=== PATIENT | male | born 1990 | race Caucasian/White ===

== ENCOUNTER 2022-05-26 13:32 | Inpatient (IN) ==
[2022-05-26] MEDS ORDERED: Tdap (Boostrix) Vaccine 0.5 ML SYRINGE IM ONE (13:57)
[2022-05-26 14:08] LABS: Basophils % 0.3 %; Eosinophils % 0.2 %; Hematocrit 48.9 % (37.5-50.1); Hemoglobin 17.4 g/dL (12.9-16.9); Immature Granulocytes % 0.3 % (0-4); Lymphocytes # 0.8 K/mcL (0.6-4.6); Mean Corpuscular HGB Conc 35.6 g/dL (31.6-35.5); Mean Corpuscular Hemoglobin 30.1 pg (28.0-33.3); Mean Corpuscular Volume 84.6 fL (83.0-100.0); Mean Platelet Volume 9.5 fL (9.4-12.4); Monocytes # 0.6 K/mcL (0.0-1.3); Monocytes % 4.6 %; Neutrophils # 11.3 K/mcL (1.6-8.9); Platelet Count 386 K/mcL (140-400); Red Blood Count 5.78 M/mcL (4.19-5.50); Red Cell Distribution Width 11.8 % (11.5-14.5); Segmented Neutrophils % 88.6 %; White Blood Count 12.7 K/mcL (4.3-11.1)
[2022-05-26 14:28] LABS: Acetaminophen < 10 mcg/mL (10-20); Alanine Aminotransferase 26 Units/L (7-52); Albumin 4.8 g/dL (3.5-5.7); Albumin/Globulin Ratio 1.7 (1.1-2.2); Alkaline Phosphatase 62 Units/L (34-104); Aspartate Amino Transferase 20 Units/L (13-39); BUN/Creatinine Ratio 8 (6-26); Bilirubin,Direct 0.2 mg/dL (0.0-0.2); Bilirubin,Indirect 0.9 mg/dL (0.0-1.0); Bilirubin,Total 1.1 mg/dL (0.3-1.0); Blood Urea Nitrogen 9 mg/dL (6-20); Calcium 9.8 mg/dL (8.6-10.3); Carbon Dioxide 28 mEq/L (23-29); Chloride 101 mEq/L (98-107); Ethanol < 10 mg/dL (Less than 10); Globulin 2.8 g/dL (2.4-3.5); Glucose 182 mg/dL (70-105); Osmolality,Calculated 285 (280-300); Potassium 4.1 mEq/L (3.5-5.1); Salicylate < 2.5 mg/dL (15.0-30.0); Sodium 136 mEq/L (136-145); Total Protein 7.6 g/dL (6.4-8.9); eGFR For African Americans > 60 (> 60); eGFR For Non-African Americans > 60 (> 60)
[2022-05-26 14:47] LABS: Estimated Average Glucose 103 mg/dl; Hemoglobin A1C 5.2 %
[2022-05-26 15:03] LABS: Amorphous Sediment,Urine Moderate per hpf (None-Few); Bilirubin,Urine Negative (Negative); Blood,Urine Negative (Negative); Clarity,Urine Ex.Turbid (Clear); Color,Urine Yellow (Yellow); Glucose,Urine (UA) 50 mg/dL (Normal); Ketones,Urine Negative (Negative); Leukocyte Esterase,Urine Negative (Negative); Mucus,Urine Few per lpf (None-Few); Nitrite,Urine Negative (Negative); Protein,Urine 100 mg/dL (Neg-Trace); Specific Gravity,Urine 1.025 (1.010-1.025)
[2022-05-26 15:29] LABS: Amphetamine Screen,Urine Negative ng/mL (Cutoff=1000); Barbiturate Screen,Urine Negative ng/mL (Cutoff=200); Benzodiazepines Screen,Urine Negative ng/mL (Cutoff=200); Cannabinoid Screen,Urine Positive ng/mL (Cutoff = 50); Cocaine Screen,Urine Negative ng/mL (Cutoff= 300); Opiate Screen,Urine Negative ng/mL (Cutoff=300); Phencyclidine Screen,Urine Negative ng/mL (Cutoff=25)
[2022-05-27] MEDS ORDERED: Acetaminophen 325 MG TABLET PO ONE (05:51)
[2022-05-27] MEDS: Nicotine 2 MG GUM BC PRN ×4 (09:38→23:35)
[2022-05-27] MEDS ORDERED: Haloperidol Lactate 5 MG/ML VIAL IM PRN (11:04)
[2022-05-27] MEDS ORDERED: hydrOXYzine pamoate 25 MG CAPSULE PO PRN (11:04)
[2022-05-27] MEDS ORDERED: haloperidoL 5 MG TABLET PO PRN (11:04)
[2022-05-27] MEDS ORDERED: MOM Conc 10 ML UD.LIQ PO PRN (11:04)
[2022-05-27] MEDS ORDERED: QUEtiapine Fumarate 25 MG TABLET PO PRN (11:04)
[2022-05-27] MEDS ORDERED: *HR* LORazepam 1 MG TABLET PO PRN (11:04)
[2022-05-27] MEDS ORDERED: *HR* LORazepam 2 MG/ML VIAL IM PRN (11:04)
[2022-05-27] MEDS ORDERED: traZODone 50 MG TABLET PO PRN (11:04)
[2022-05-27] MEDS ORDERED: Mag Hydrox/Al Hydrox/Simeth 30 ML UDC PO PRN (11:04)
[2022-05-27 12:20] LABS: Influenza A PCR Negative (Negative); Influenza B PCR Negative (Negative); Resp. Syncytial Virus PCR Negative (Negative)
[2022-05-27 12:21] LABS: SARS-CoV-2 by PCR (In House) Negative (Negative)
[2022-05-27] MEDS: FLUoxetine HCl 10 MG CAPSULE PO SCH (15:31)
[2022-05-27] MEDS: Acetaminophen 325 MG TABLET PO PRN (18:12)
[2022-05-28] MEDS: Vitamin B Complex/Vit C/Vit E 1 EACH TABLET PO SCH (08:04)
[2022-05-28] MEDS: FLUoxetine HCl 10 MG CAPSULE PO SCH (08:04)
[2022-05-28] MEDS: Acetaminophen 325 MG TABLET PO PRN ×2 (08:05→20:33)
[2022-05-28] MEDS: Nicotine 2 MG GUM BC PRN ×5 (08:07→20:33)
[2022-05-28 12:45] LABS: Estimated Average Glucose 105 mg/dl; Hemoglobin A1C 5.3 %
[2022-05-28 13:07] LABS: Chol/HDL Ratio 2.8 (0-4.9); Cholesterol 140 mg/dL (< 200); HDL Cholesterol 50 mg/dL (40-59); LDL Cholesterol,Calculated 71 mg/dL (< 100); Testosterone,Total 120 ng/dL (280-1100); Triglycerides 96 mg/dL (< 150); Troponin I < 0.03 ng/mL (< 0.04)
[2022-05-28] MEDS: amLODIPine 5 MG TABLET PO SCH (16:07)
[2022-05-28 17:14] LABS: Basophils # 0.1 K/mcL (0.0-0.2); Basophils % 0.4 %; Eosinophils # 0.2 K/mcL (0.0-0.6); Eosinophils % 1.1 %; Hematocrit 52.9 % (37.5-50.1); Hemoglobin 18.2 g/dL (12.9-16.9); Immature Granulocytes % 0.4 % (0-4); Lymphocytes # 2.1 K/mcL (0.6-4.6); Lymphocytes % 14.1 %; Mean Corpuscular HGB Conc 34.4 g/dL (31.6-35.5); Mean Corpuscular Hemoglobin 29.6 pg (28.0-33.3); Mean Platelet Volume 9.7 fL (9.4-12.4); Monocytes # 0.8 K/mcL (0.0-1.3); Monocytes % 5.4 %; Neutrophils # 11.5 K/mcL (1.6-8.9); Platelet Count 400 K/mcL (140-400); Red Blood Count 6.15 M/mcL (4.19-5.50); Red Cell Distribution Width 11.9 % (11.5-14.5); Segmented Neutrophils % 78.6 %; White Blood Count 14.7 K/mcL (4.3-11.1)
[2022-05-28 17:27] LABS: BUN/Creatinine Ratio 11 (6-26); Blood Urea Nitrogen 10 mg/dL (6-20); Calcium 9.8 mg/dL (8.6-10.3); Carbon Dioxide 27 mEq/L (23-29); Chloride 100 mEq/L (98-107); Glucose 107 mg/dL (70-105); Osmolality,Calculated 282 (280-300); Potassium 4.1 mEq/L (3.5-5.1); Sodium 136 mEq/L (136-145); eGFR For African Americans > 60 (> 60); eGFR For Non-African Americans > 60 (> 60)
[2022-05-28 21:35] VITALS: TEMP 97.8; O2SAT 99
[2022-05-29] MEDS: Vitamin B Complex/Vit C/Vit E 1 EACH TABLET PO SCH (07:54)
[2022-05-29] MEDS: amLODIPine 5 MG TABLET PO SCH (07:54)
[2022-05-29] MEDS: Nicotine 2 MG GUM BC PRN ×2 (07:56→10:53)
[2022-05-29 08:02] VITALS: BP 151/97; PULSE 105
[2022-05-29 12:33] LABS: Bilirubin,Urine Negative (Negative); Blood,Urine Negative (Negative); Clarity,Urine Clear (Clear); Color,Urine Light-Yellow (Yellow); Glucose,Urine (UA) Normal (Normal); Ketones,Urine Negative (Negative); Leukocyte Esterase,Urine Negative (Negative); Nitrite,Urine Negative (Negative); PH,Urine 7.5 pH Units (5.0-8.0); Protein,Urine Negative (Neg-Trace); Urobilinogen,Urine Normal (Normal)
[2022-05-29] MEDS: Acetaminophen 325 MG TABLET PO PRN (14:05)
== END 2022-05-29 14:20 | disposition home or self-care (01) | DRG 754 ==
LOC: EMEROOARM 13:32 → 1ANU 05-27 13:10 → SUATTDRO 05-27 13:10 → 1ANU 05-27 14:33
PROVIDERS: ADMIT Psychiatry & Neurology Psychiatry; ATTEND Nurse Practitioner